=== PATIENT | female | born 1995 | race Caucasian/White ===

== ENCOUNTER 2019-07-27 11:34 | Emergency (ER) | payer OTHER, SELFPAY ==
[2019-07-27 11:39] VITALS: PULSE 85; RESP 18; TEMP 36.5; O2SAT 100
--- NOTE | 2019-07-27 11:53 | ED.URI ---
HPI - URI/Sore Throat General Chief Complaint: Upper Respiratory Infection Stated Complaint: COUGH/CONGESTION Time Seen by Provider: 07/27/19 11:53 Source: patient Mode of arrival: ambulatory Limitations: no limitations History of Present Illness HPI Narrative: A 24 y/o female, who is a nonsmoker/nondrinker, presents to with c/o a cough and congestion for 4 days. 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 Pt has been taking DayQuil, NyQuil, Ibuprofen, and an organic cold medicine with no relief. Pt has a PMHx of seasonal allergies but does not use an inhaler or nebulizer at home. Pt's influenza immunization is UTD. She reports CP when coughing and a 100 degree F fever on Monday (3 days ago), but denies a wheeze and an earache. Pertinent past history: seasonal allergies Onset (ago): day(s) (4) Relieving factors: nothing Related Data Home Medications Medication Instructions Recorded Confirmed Control Pills 07/27/19 Cold and Flu Severe 07/27/19 [id number] cap PO 07/27/19 [Vicks DayQuil-NyQuil] ibuprofen 200 mg PO Q6H PRN 07/27/19 07/27/19 Allergies Allergy/AdvReac Type Severity Reaction Status Date / Time No Known Allergies Allergy Verified 07/27/19 11:46 Review of Systems Review of Systems: Narrative: General/Constitutional: Reports: 100 degree F fever (resolved); Denies: weight loss Eyes: Denies: Redness,discharge Ears/Nose/Throat: Reports: congestion; Denies: Epistaxis,ear discharge, earache Respiratory: Reports: cough; Denies: Hemoptysis, wheeze Cardiovascular: Reports: CP when coughing Gastrointestinal: Denies: Vomiting, Bleeding-rectal Skin: Denies: Lumps, eruption Neurologic: Denies: Focal Weakness,Sz Hematologic: Denies: Petechiae/Purpura Psychiatric: Denies: Suicidal ideation All systems reviewed & are unremarkable except as noted in HPI and below PMFSH Past Medical History Medical History (Updated 07/27/19 @ 12:06 by Debbie Valente) Seasonal allergies Social History Social History (Updated 07/27/19 @ 12:07 by Debbie Valente) Smoking status: Never smoker Alcohol intake: never Comments No PCP on file. At time of signature, agree with nursing past medical, surgical, social and family history. There is no relevant family history pertinent to the presenting complaint Exam Narrative: Exam Narrative: General Appearance: Well appearing, Well nourished EYE: PERRLA, Conjunctiva clear Ears: Auditory canal normal, TM normal Nose: Rhinorrhea, Mucousal erythema Mouth/Throat: MM moist, Uvula midline, Pharyngeal erythema Neck: Supple, No adenopathy Respiratory: No respiratory distress, Breath sounds equal, Clear to auscultation Cardiovascular: RRR, No JVD Musculoskeletal: Non tender, Normal strength Skin: Warm, Dry Neurological: A&O x3, CN II-XII intact Psychiatric: Normal mood, Normal affect Course Vital Signs Vital signs: Vital Signs Temperature 97.7 F 07/27/19 11:39 Pulse Rate 85 07/27/19 11:39 Respiratory Rate 18 07/27/19 11:39 Pulse Oximetry 100 07/27/19 11:39 Temperature 97.7 F 07/27/19 11:39 Pulse Rate 85 07/27/19 11:39 Respiratory Rate 18 07/27/19 11:39 Pulse Oximetry 100 07/27/19 11:39 Discharge Plan Discharge Clinical Impression: Influenza-like illness Patient Disposition: Home, Self-Care Condition: Stable Instructions: Antibiotic Form, Acute Bronchitis (ED) Prescriptions: New azithromycin 250 mg tablet See Rx Instructions .ROUTE .COMPLEX Qty: 6 RF: 0 codeine-guaifenesin 10-100 mg/5 mL liquid 7.5 ml PO Q6H PRN (Reason: cough) Qty: 118 RF: 0 azelastine 137 mcg (0.1 %) aerosol,spray 137 mcg NASAL Q12H Qty: 30 RF: 0 benzonatate [Tessalon Perles] 100 mg capsule 100 mg PO TID Qty: 20 RF: 1 No Action ibuprofen 200 mg Tablet 200 mg PO Q6H PRN (Reason: Pain) RF: 0 Vicks DayQuil-NyQuil 10-5-325mg(d)/ 15-325-6.25mg Capsule, Sequential
== END 2019-07-27 12:09 | disposition home or self-care (01) ==
PROVIDERS: Emergency Provider Emergency Medicine
DX: R05 Cough (principal); R09.89 Other specified symptoms and signs involving the circulatory and respiratory systems; R50.9 Fever, unspecified
CPT/HCPCS: 99213; G0463